=== PATIENT | male | born 1985 | race Caucasian/White ===

== ENCOUNTER 2021-05-10 09:59 | Emergency (ER) | payer OTHER ==
[~2021-05-10] VITALS: Ht 177.8 cm; Wt 78.9 kg
[2021-05-10 13:05] VITALS: BP 155/88
== END 2021-05-10 14:40 | disposition home or self-care (01) ==
LOC: ER 09:59
DX: S22.32XA Fracture of one rib, left side, initial encounter for closed fracture (principal); F17.210 Nicotine dependence, cigarettes, uncomplicated; W01.0XXA Fall on same level from slipping, tripping and stumbling without subsequent striking against object, initial encounter; Y93.9 Activity, unspecified; Y92.89 Other specified places as the place of occurrence of the external cause; Y99.8 Other external cause status
CPT/HCPCS: 71250